=== PATIENT | male | born 1985 | race Caucasian/White ===

== ENCOUNTER 2021-05-07 16:23 | Inpatient (IN) | payer MEDICARE, MEDICAID ==
[~2021-05-07] VITALS: Ht 152.4 cm; Wt 66.5 kg
[~2021-05-07 16:23] MED LIST: CLON-853 PO; FAMO-12 PO; GABA300C10 PO; INSLISPI SC; LORA2TAB12 PO; METO-159 PO; OXY5T PO; QUET25TA37 PO; ZOLP10TA PO
[2021-05-07] MEDS ORDERED: ACETAMINOPHEN 650 MG RECT SUPP PR ONE ×2 (17:43→17:45)
[2021-05-07 18:08] LABS: Hemoglobin 7.5 g/dL (13.5-17.5); Red Blood Cells 2.68 10^6/uL (4.5-5.90); White Blood Cell 13.6 10^3/uL (4.4-10.8)
[2021-05-07 18:10] LABS: Hematocrit 23.4 % (41.0-53.0); Mean Corpuscular Hgb Conc. 32.1 g/dL (32.0-36.0); Mean Corpuscular Volume 87.2 fL (80.0-100.0); Red Cell Distribution Width 17.6 % (11.8-14.3)
[2021-05-07 18:12] LABS: Basophils % (manual) 0 (0.0-2.0); Blast Cells 0; Eosinophils % (manual) 0 (0-7); Metamyelocytes % 0; Myelocytes % 0; Promyelocytes % 0; Reactive Lymphocytes 0
[2021-05-07 18:22] LABS: Alanine Aminotransferase 17 U/L (16-61); Albumin 2.7 g/dL (3.4-5.0); Anion Gap 23 (5-15); Aspartate Aminotransferase 20 U/L (15-37); BUN/Creatinine Ratio 6.7; Calcium 7.3 mg/dL (8.5-10.1); Carbon Dioxide 13 mmol/L (21-32); Chloride 91 mmol/L (98-107); GFR African American 6 mL/min; GFR Non-African American 5 mL/min; Glucose 97 mg/dL (74-106); Sodium 127 mmol/L (136-145)
[2021-05-07 18:27] LABS: Alkaline Phosphatase 121 U/L (45-117); Bilirubin, Total 0.6 mg/dL (0.2-1.0); Total Protein 6.9 g/dL (6.4-8.2)
[2021-05-07 18:31] LABS: Blood Urea Nitrogen 88 mg/dL (7-18); Potassium 6.4 mmol/L (3.5-5.1)
[2021-05-07] MEDS ORDERED: SODIUM BICARBONATE 8.4 % INJ 50ML VIAL IV ONE (18:45)
[2021-05-07] MEDS ORDERED: CALCIUM GLUC 1,000mg/50ml-NS 50 ML IV ONE (18:45)
[2021-05-07] MEDS ORDERED: SODIUM BICARBONATE 8.4% INJ 50ML SYRINGE ONE (18:52)
[2021-05-07] MEDS ORDERED: DEXTROSE (50%) 50ML SYRG IV ONE ×2 (19:00→21:00)
[2021-05-07] MEDS ORDERED: InsuLIN REG 1unit/0.01ml Soln (100units/ml) SC ONE ×2 (19:00→22:00)
[2021-05-07 20:20] LABS: Band Neutrophils % (manual) 10; Lymphocytes % (manual) 2 (10.0-50.0); Monocytes % (manual) 4 (0-12)
[2021-05-07] MEDS ORDERED: HEPARIN SODIUM (PORCINE) 5000 UNITS/ML 1ML VIAL IV ONE (20:45)
[2021-05-07] MEDS ORDERED: NITROGLYCERIN 0.4 MG SL TAB SL PRN (20:45)
[2021-05-07] MEDS ORDERED: ONDANSETRON HCL 4 MG/2 ML VIAL IV PRN (20:45)
[2021-05-07] MEDS ORDERED: MORPHINE SULFATE INJECTION 2 MG/ML SYRG IV PRN (20:45)
[2021-05-07] MEDS ORDERED: DOCUSATE SOD 100 MG CAP PO PRN (20:45)
[2021-05-07] MEDS ORDERED: VANCOMYCIN PER PHARMACY 0 MG IV SCH (21:00)
[2021-05-07] MEDS ORDERED: GENTAMICIN SULFATE 80 MG in D5W 5% 100 ML IV ONE (21:15)
[2021-05-07] MEDS ORDERED: VANCOMYCIN 1GM/250ML 250 ML IV ONE (21:30)
[2021-05-07] MEDS ORDERED: ACCU-CHEK COMFORT CURVE STRIP VI ONE (22:00)
[2021-05-07] MEDS: NOREPINEPHRINE 8 MG/250ML KIT 250 ML IV SCH (22:15)
[2021-05-07] MEDS: HEPARIN SODIUM (PORCINE) 5000 UNITS/ML 1ML VIAL SC SCH (23:10)
[2021-05-08 00:36] LABS: Calcium 7.6 mg/dL (8.5-10.1); Potassium 3.9 mmol/L (3.5-5.1)
[2021-05-08] MEDS: PIPERACILLIN-TAZOB 2.25GM 50 ML IV SCH ×4 (01:09→23:01)
[2021-05-08 06:53] LABS: Red Blood Cells 2.72 10^6/uL (4.5-5.90); Red Cell Distribution Width 17.2 % (11.8-14.3); White Blood Cell 10.7 10^3/uL (4.4-10.8)
[2021-05-08 06:55] LABS: Hematocrit 23.3 % (41.0-53.0); Hemoglobin 7.9 g/dL (13.5-17.5); Mean Corpuscular Hgb Conc. 33.9 g/dL (32.0-36.0); Mean Corpuscular Volume 85.7 fL (80.0-100.0)
[2021-05-08 06:59] LABS: Basophils % (manual) 0 (0.0-2.0); Blast Cells 0; Eosinophils % (manual) 0 (0-7); Metamyelocytes % 0; Promyelocytes % 0; Reactive Lymphocytes 0
[2021-05-08 07:18] LABS: Albumin 2.3 g/dL (3.4-5.0); Calcium 7.5 mg/dL (8.5-10.1); Potassium 4.4 mmol/L (3.5-5.1)
[2021-05-08 07:21] LABS: BUN/Creatinine Ratio 6.2; Bilirubin, Total 0.7 mg/dL (0.2-1.0)
[2021-05-08 08:01] LABS: Band Neutrophils % (manual) 7; Lymphocytes % (manual) 3 (10.0-50.0); Monocytes % (manual) 12 (0-12); Myelocytes % 1
[2021-05-08] MEDS: PANTOPRAZOLE 40 MG/10 ML VIAL INJ IV SCH (09:25)
[2021-05-08] MEDS: HEPARIN SODIUM (PORCINE) 5000 UNITS/ML 1ML VIAL SC SCH ×2 (09:26→23:02)
[2021-05-08] MEDS ORDERED: ACETAMINOPHEN 650 mg PER 20.3 mL UD PO ONE (11:00)
[2021-05-08 12:33] LABS: Urine Amorphous Crystal FEW /hpf (None Seen); Urine Bacteria FEW /hpf (None Seen); Urine Blood 2+ /uL (Negative); Urine Specific Gravity 1.024 (1.001-1.035); Urine WBC 225 /hpf (0 - 3); Urine WBC Clumps PRESENT /hpf (None Seen)
[2021-05-08 12:36] LABS: Amphetamine Screen, Urine NEGATIVE (NEGATIVE); Barbiturate Scree,Urine NEGATIVE (NEGATIVE); Benzodiazephine Screen, Urine NEGATIVE (NEGATIVE); Cannabinoid Screen, Urine NEGATIVE (NEGATIVE); Cocaine Screen, Urine NEGATIVE (NEGATIVE); Opiate Scree,Urine NEGATIVE (NEGATIVE); Phencyclidine Screen, Urine NEGATIVE (NEGATIVE)
[2021-05-08 12:39] LABS: Alcohol, Urine < 3.0 mg/dL (0-10)
[2021-05-08] MEDS ORDERED: LIDOCAINE 2% (LOCAL ANESTH.) PF 5ml SDV ONE (16:59)
[2021-05-08] MEDS: NOREPINEPHRINE 8 MG/250ML KIT 250 ML IV SCH (20:30)
[2021-05-09] MEDS ORDERED: SODIUM CHL 0.9% 1000 ML BAG XX ONE (07:00)
[2021-05-09 07:04] LABS: Hematocrit 25.4 % (41.0-53.0); Hemoglobin 8.5 g/dL (13.5-17.5)
[2021-05-09] MEDS: PIPERACILLIN-TAZOB 2.25GM 50 ML IV SCH ×3 (09:20→23:51)
[2021-05-09 10:15] LABS: INR 1.13 (0.9-1.15)
[2021-05-09] MEDS: PANTOPRAZOLE 40 MG/10 ML VIAL INJ IV SCH (10:56)
[2021-05-09] MEDS: HEPARIN SODIUM (PORCINE) 5000 UNITS/ML 1ML VIAL SC SCH ×2 (10:57→23:53)
[2021-05-09] MEDS ORDERED: LORazepam 2MG/ML-1ML VIAL IV ONE (14:30)
[2021-05-09 15:31] LABS: Hemoglobin 8.1 g/dL (13.5-17.5)
[2021-05-09] MEDS ORDERED: ONDA-144 PO (15:32)
[2021-05-09] MEDS ORDERED: ALBUAER3 INH (15:32)
[2021-05-09 15:33] LABS: Hematocrit 24.7 % (41.0-53.0); Mean Corpuscular Hemoglobin 28.2 pg (28.0-32.0); Mean Corpuscular Hgb Conc. 32.7 g/dL (32.0-36.0); Mean Corpuscular Volume 86.2 fL (80.0-100.0); Red Blood Cells 2.86 10^6/uL (4.5-5.90); Red Cell Distribution Width 17.3 % (11.8-14.3)
[2021-05-09 15:35] LABS: Basophils % (manual) 0 (0.0-2.0); Blast Cells 0; Eosinophils % (manual) 0 (0-7); Metamyelocytes % 0; Myelocytes % 0; Promyelocytes % 0; Reactive Lymphocytes 0
[2021-05-09 15:42] LABS: Calcium 8.1 mg/dL (8.5-10.1)
[2021-05-09 15:46] LABS: BUN/Creatinine Ratio 8.7; Bilirubin, Total 0.7 mg/dL (0.2-1.0); Total Protein 7.2 g/dL (6.4-8.2)
[2021-05-09] MEDS ORDERED: PANT40TA2 PO (15:48)
[2021-05-09] MEDS ORDERED: INSU100I49 SC (15:57)
[2021-05-09] MEDS ORDERED: INSUINJ37 SC (15:59)
[2021-05-09] MEDS ORDERED: TRAZ100T3 PO (16:02)
[2021-05-09] MEDS ORDERED: CLON0.2D TD (16:02)
[2021-05-09] MEDS ORDERED: DIVA500T12 PO (16:06)
[2021-05-09] MEDS ORDERED: METH10T PO (16:06)
[2021-05-09] MEDS ORDERED: LISI40TA11 PO (16:06)
[2021-05-09] MEDS ORDERED: VANCOMYCIN 1GM/250ML 250 ML IV ONE (17:00)
[2021-05-09 17:50] LABS: Band Neutrophils % (manual) 14; Lymphocytes % (manual) 8 (10.0-50.0); Monocytes % (manual) 6 (0-12)
[2021-05-09] MEDS ORDERED: EPOETIN ALFA-EPBX 10,000 UNIT/1ML VIAL SC ONE (21:00)
[2021-05-09] MEDS: VANCOMYCIN HCL 125MG/5ML ORAL SOL PO SCH (23:52)
[2021-05-10] MEDS: PIPERACILLIN-TAZOB 2.25GM 50 ML IV SCH ×3 (06:10→22:45)
[2021-05-10] MEDS: VANCOMYCIN HCL 125MG/5ML ORAL SOL PO SCH ×4 (06:11→22:45)
[2021-05-10 07:34] LABS: Basophils # (auto) 0 10 ^3/uL (0-0.2); Eosinophils # (auto) 0 10 ^3/uL (0-0.8); Eosinophils % (auto) 0.2 % (0.0-7.0); Hematocrit 25.9 % (41.0-53.0); Mean Corpuscular Volume 91.3 fL (80.0-100.0); Red Blood Cells 2.84 10^6/uL (4.5-5.90)
[2021-05-10 07:38] LABS: Basophils % (auto) 0.1 % (0.0-2.0); Hemoglobin 8.3 g/dL (13.5-17.5); Lymphocytes % (auto) 4.9 % (10.0-50.0); Mean Corpuscular Hemoglobin 29.2 pg (28.0-32.0); Monocytes # (auto) 1.8 10 ^3/uL (0-1.3); Monocytes % (auto) 9.4 % (0.0-12.0); Neutrophils # (auto) 16.6 10 ^3/uL (1.6-8.6); Neutrophils % (auto) 85.4 % (37.0-80.0); Red Cell Distribution Width 18.5 % (11.8-14.3); White Blood Cell 19.4 10^3/uL (4.4-10.8)
[2021-05-10] MEDS: PANTOPRAZOLE 40 MG/10 ML VIAL INJ IV SCH (11:42)
[2021-05-10] MEDS: HEPARIN SODIUM (PORCINE) 5000 UNITS/ML 1ML VIAL SC SCH ×2 (11:43→22:00)
[2021-05-10] MEDS: ACETAMINOPHEN 325 MG TAB PO PRN ×2 (11:59→20:34)
[2021-05-10 21:10] VITALS: BP 136/63
[2021-05-10 22:00] VITALS: BP 136/63
[2021-05-11 05:00] VITALS: BP 142/84
[2021-05-11 05:25] LABS: Mean Corpuscular Hgb Conc. 29.4 g/dL (32.0-36.0)
[2021-05-11 05:26] LABS: Hematocrit 29.3 % (41.0-53.0); Hemoglobin 8.6 g/dL (13.5-17.5); Mean Corpuscular Hemoglobin 28.3 pg (28.0-32.0); Mean Corpuscular Volume 96.5 fL (80.0-100.0); Red Blood Cells 3.04 10^6/uL (4.5-5.90); Red Cell Distribution Width 18.4 % (11.8-14.3); White Blood Cell 23.7 10^3/uL (4.4-10.8)
[2021-05-11 05:38] LABS: Basophils % (manual) 0 (0.0-2.0); Blast Cells 0; Eosinophils % (manual) 0 (0-7); Metamyelocytes % 0; Myelocytes % 0; Promyelocytes % 0; Reactive Lymphocytes 0
[2021-05-11 05:43] LABS: INR 1.16 (0.9-1.15); Partial Thromboplastin Time 32.2 sec (23.6-33.0)
[2021-05-11 06:02] LABS: Potassium 4.8 mmol/L (3.5-5.1)
[2021-05-11 06:13] LABS: BUN/Creatinine Ratio 11.4; Calcium 8.7 mg/dL (8.5-10.1)
[2021-05-11] MEDS: PIPERACILLIN-TAZOB 2.25GM 50 ML IV SCH ×3 (06:15→21:56)
[2021-05-11] MEDS: VANCOMYCIN HCL 125MG/5ML ORAL SOL PO SCH ×4 (06:16→21:56)
[2021-05-11 06:37] LABS: Band Neutrophils % (manual) 25; Lymphocytes % (manual) 5 (10.0-50.0); Monocytes % (manual) 8 (0-12)
[2021-05-11] MEDS ORDERED: SODIUM CHL 0.9% 1000 ML BAG XX ONE (07:00)
[2021-05-11] MEDS ORDERED: DEXTROSE (50%) 50ML SYRG IV PRN ×3 (08:45→19:00)
[2021-05-11] MEDS ORDERED: InsuLIN R (HUMAN) 100 UNITS in SODIUM CHL 0.9% 99 ML IV SCH ×3 (08:45→12:45)
[2021-05-11] MEDS ORDERED: INSULIN LANTUS (GLARGINE) 1 /0.01ml (100units/ml) SC ONE ×3 (08:45→22:00)
[2021-05-11 08:54] VITALS: BP 122/73
[2021-05-11] MEDS ORDERED: ACCU-CHEK COMFORT CURVE STRIP VI SCH (09:00)
[2021-05-11] MEDS: SODIUM CHLORIDE 0.9% 1,000 ML IV SCH ×2 (09:31→10:45)
[2021-05-11 10:25] LABS: Basophils % (auto) 0.2 % (0.0-2.0); Eosinophils # (auto) 0 10 ^3/uL (0-0.8); Eosinophils % (auto) 0.1 % (0.0-7.0); Hemoglobin 8.1 g/dL (13.5-17.5); Lymphocytes # (auto) 0.9 10 ^3/uL (0.4-5.4); White Blood Cell 22.8 10^3/uL (4.4-10.8)
[2021-05-11 10:28] LABS: Basophils # (auto) 0 10 ^3/uL (0-0.2); Hematocrit 27.3 % (41.0-53.0); Lymphocytes % (auto) 3.9 % (10.0-50.0); Mean Corpuscular Hemoglobin 28.3 pg (28.0-32.0); Mean Corpuscular Hgb Conc. 29.6 g/dL (32.0-36.0); Mean Corpuscular Volume 95.5 fL (80.0-100.0); Monocytes # (auto) 1.5 10 ^3/uL (0-1.3); Monocytes % (auto) 6.6 % (0.0-12.0); Neutrophils # (auto) 20.3 10 ^3/uL (1.6-8.6); Neutrophils % (auto) 89.2 % (37.0-80.0); Red Blood Cells 2.86 10^6/uL (4.5-5.90); Red Cell Distribution Width 18.6 % (11.8-14.3)
[2021-05-11] MEDS: HEPARIN SODIUM (PORCINE) 5000 UNITS/ML 1ML VIAL SC SCH (10:34)
[2021-05-11] MEDS: PANTOPRAZOLE 40 MG/10 ML VIAL INJ IV SCH (10:34)
[2021-05-11 10:44] LABS: Calcium 8.3 mg/dL (8.5-10.1); Potassium 5.1 mmol/L (3.5-5.1)
[2021-05-11 10:49] LABS: Magnesium 3.3 mg/dL (1.6-2.6)
[2021-05-11 10:53] LABS: BUN/Creatinine Ratio 11.5
[2021-05-11 11:19] LABS: Phosphorus 9.5 mg/dL (2.5-4.90)
[2021-05-11 12:00] VITALS: BP 146/102
[2021-05-11] MEDS: ACCU-CHEK COMFORT CURVE STRIP VI SCH ×6 (12:34→21:55)
[2021-05-11] MEDS ORDERED: SODIUM CHLORIDE 0.9% 1,000 ML IV SCH ×2 (12:45→14:45)
[2021-05-11 15:47] LABS: Urine Bacteria MANY /hpf (None Seen); Urine Blood 3+ /uL (Negative); Urine WBC 2072 /hpf (0 - 3)
[2021-05-11 15:50] LABS: Urine Specific Gravity 1.028 (1.001-1.035)
[2021-05-11 15:56] LABS: BUN/Creatinine Ratio 10.1; Calcium 7.8 mg/dL (8.5-10.1)
[2021-05-11 16:10] VITALS: BP 140/72
[2021-05-11 18:22] VITALS: BP 146/80
[2021-05-11 18:36] LABS: Anion Gap 12 (5-15); BUN/Creatinine Ratio 8.9; Blood Urea Nitrogen 34 mg/dL (7-18); Calcium 7.9 mg/dL (8.5-10.1); Carbon Dioxide 28 mmol/L (21-32); Chloride 101 mmol/L (98-107); GFR African American 23 mL/min; GFR Non-African American 19 mL/min; Glucose 141 mg/dL (74-106); Potassium 3.6 mmol/L (3.5-5.1); Sodium 141 mmol/L (136-145)
[2021-05-11] MEDS ORDERED: EPOETIN ALFA-EPBX 4,000 UNIT/ML VIAL SC ONE (21:00)
[2021-05-11] MEDS: LINEZOLID 600MG/300ML 300 ML IV SCH (21:56)
[2021-05-11 22:00] VITALS: BP 147/84
[2021-05-12] MEDS: HEPARIN SODIUM (PORCINE) 5000 UNITS/ML 1ML VIAL SC SCH ×3 (01:04→22:54)
[2021-05-12] MEDS: InsuLIN REG 1unit/0.01ml Soln (100units/ml) SC SCH ×5 (03:14→22:00)
[2021-05-12 05:00] VITALS: BP 149/83
[2021-05-12] MEDS: VANCOMYCIN HCL 125MG/5ML ORAL SOL PO SCH ×3 (06:32→18:12)
[2021-05-12] MEDS: ACCU-CHEK COMFORT CURVE STRIP VI SCH ×3 (06:32→17:09)
[2021-05-12] MEDS: PIPERACILLIN-TAZOB 2.25GM 50 ML IV SCH ×2 (06:32→14:29)
[2021-05-12 08:03] LABS: Eosinophils # (auto) 0.1 10 ^3/uL (0-0.8); Hemoglobin 8.1 g/dL (13.5-17.5); Lymphocytes # (auto) 1.2 10 ^3/uL (0.4-5.4); Monocytes # (auto) 1.1 10 ^3/uL (0-1.3)
[2021-05-12 08:06] LABS: Basophils # (auto) 0 10 ^3/uL (0-0.2); Basophils % (auto) 0.1 % (0.0-2.0); Eosinophils % (auto) 0.4 % (0.0-7.0); Hematocrit 24.8 % (41.0-53.0); Lymphocytes % (auto) 6.1 % (10.0-50.0); Mean Corpuscular Hemoglobin 28.5 pg (28.0-32.0); Mean Corpuscular Hgb Conc. 32.7 g/dL (32.0-36.0); Mean Corpuscular Volume 87.1 fL (80.0-100.0); Monocytes % (auto) 5.8 % (0.0-12.0); Neutrophils # (auto) 16.5 10 ^3/uL (1.6-8.6); Neutrophils % (auto) 87.6 % (37.0-80.0); Red Blood Cells 2.85 10^6/uL (4.5-5.90); Red Cell Distribution Width 16.9 % (11.8-14.3); White Blood Cell 18.8 10^3/uL (4.4-10.8)
[2021-05-12 09:00] VITALS: BP 143/82
[2021-05-12 09:29] LABS: BUN/Creatinine Ratio 8.1; Potassium 3.5 mmol/L (3.5-5.1)
[2021-05-12] MEDS ORDERED: INSULIN LANTUS (GLARGINE) 1 /0.01ml (100units/ml) SC SCH ×2 (10:00)
[2021-05-12] MEDS: PANTOPRAZOLE 40 MG/10 ML VIAL INJ IV SCH (10:04)
[2021-05-12] MEDS: LINEZOLID 600MG/300ML 300 ML IV SCH (10:04)
[2021-05-12] MEDS: INSULIN LANTUS (GLARGINE) 1 /0.01ml (100units/ml) SC SCH (10:24)
[2021-05-12 13:00] VITALS: BP 140/76
[2021-05-12] MEDS ORDERED: VANCOMYCIN 1GM/250ML 250 ML IV ONE (16:15)
[2021-05-12] MEDS ORDERED: HYDROcodone-ACET 5/325MG TAB PO PRN (16:45)
[2021-05-12] MEDS: HYDROcodone-ACET 10/325MG TAB PO PRN (16:51)
[2021-05-12 17:00] VITALS: BP 146/89
[2021-05-12 22:00] VITALS: BP 147/81
[2021-05-13] MEDS: LINEZOLID 600MG/300ML 300 ML IV SCH ×3 (00:12→22:36)
[2021-05-13] MEDS: ACCU-CHEK COMFORT CURVE STRIP VI SCH ×5 (00:12→22:37)
[2021-05-13] MEDS: VANCOMYCIN HCL 125MG/5ML ORAL SOL PO SCH ×5 (00:12→22:36)
[2021-05-13] MEDS: PIPERACILLIN-TAZOB 2.25GM 50 ML IV SCH ×4 (00:12→22:36)
[2021-05-13 05:00] VITALS: BP 145/84
[2021-05-13] MEDS: HYDROcodone-ACET 10/325MG TAB PO PRN ×2 (06:26→15:20)
[2021-05-13] MEDS: InsuLIN REG 1unit/0.01ml Soln (100units/ml) SC SCH ×4 (06:29→22:00)
[2021-05-13 07:38] LABS: Basophils # (auto) 0 10 ^3/uL (0-0.2); Basophils % (auto) 0.2 % (0.0-2.0); Eosinophils # (auto) 0 10 ^3/uL (0-0.8); Eosinophils % (auto) 0.1 % (0.0-7.0); Hemoglobin 8.4 g/dL (13.5-17.5); White Blood Cell 22.2 10^3/uL (4.4-10.8)
[2021-05-13 07:40] LABS: Hematocrit 25.7 % (41.0-53.0); Lymphocytes # (auto) 1.2 10 ^3/uL (0.4-5.4); Lymphocytes % (auto) 5.3 % (10.0-50.0); Mean Corpuscular Hemoglobin 28.3 pg (28.0-32.0); Mean Corpuscular Hgb Conc. 32.8 g/dL (32.0-36.0); Mean Corpuscular Volume 86.1 fL (80.0-100.0); Monocytes % (auto) 4.5 % (0.0-12.0); Neutrophils % (auto) 89.9 % (37.0-80.0); Red Blood Cells 2.98 10^6/uL (4.5-5.90); Red Cell Distribution Width 16.7 % (11.8-14.3)
[2021-05-13 07:43] LABS: Calcium 7.9 mg/dL (8.5-10.1); Potassium 3.4 mmol/L (3.5-5.1)
[2021-05-13 07:45] LABS: BUN/Creatinine Ratio 8.1
[2021-05-13 09:00] VITALS: BP 142/81
[2021-05-13] MEDS: PANTOPRAZOLE 40 MG/10 ML VIAL INJ IV SCH (09:23)
[2021-05-13] MEDS: HEPARIN SODIUM (PORCINE) 5000 UNITS/ML 1ML VIAL SC SCH ×2 (09:24→22:51)
[2021-05-13] MEDS: INSULIN LANTUS (GLARGINE) 1 /0.01ml (100units/ml) SC SCH (09:24)
[2021-05-13 13:00] VITALS: BP 144/85
[2021-05-13] MEDS ORDERED: HYDROmorphone HCL 2 MG TAB PO PRN (16:00)
[2021-05-13 17:00] VITALS: BP 145/82
[2021-05-13] MEDS: HYDROmorphone HCL 2 MG TAB PO PRN ×2 (17:50→22:37)
[2021-05-13] MEDS: Ensure HIGH Protein Chocolate 8oz Bottle PO SCH (20:00)
[2021-05-13 22:00] VITALS: BP 141/79
[2021-05-13] MEDS: ACETAMINOPHEN 325 MG TAB PO PRN (22:37)
[2021-05-14] MEDS: HYDROmorphone HCL 2 MG TAB PO PRN ×4 (04:34→22:12)
[2021-05-14 05:00] VITALS: BP 153/88
[2021-05-14] MEDS: VANCOMYCIN HCL 125MG/5ML ORAL SOL PO SCH ×4 (05:57→20:45)
[2021-05-14] MEDS: PIPERACILLIN-TAZOB 2.25GM 50 ML IV SCH (06:54)
[2021-05-14] MEDS: ACCU-CHEK COMFORT CURVE STRIP VI SCH ×4 (06:54→20:45)
[2021-05-14] MEDS: InsuLIN REG 1unit/0.01ml Soln (100units/ml) SC SCH ×4 (06:54→20:54)
[2021-05-14] MEDS ORDERED: SODIUM CHL 0.9% 1000 ML BAG XX ONE (07:00)
[2021-05-14 07:44] LABS: Basophils # (auto) 0 10 ^3/uL (0-0.2); Eosinophils # (auto) 0 10 ^3/uL (0-0.8); Monocytes % (auto) 4.3 % (0.0-12.0)
[2021-05-14 07:47] LABS: Basophils % (auto) 0.2 % (0.0-2.0); Eosinophils % (auto) 0.2 % (0.0-7.0); Hematocrit 23.7 % (41.0-53.0); Hemoglobin 7.8 g/dL (13.5-17.5); Lymphocytes # (auto) 1.3 10 ^3/uL (0.4-5.4); Lymphocytes % (auto) 5.4 % (10.0-50.0); Mean Corpuscular Hemoglobin 28.3 pg (28.0-32.0); Mean Corpuscular Hgb Conc. 32.7 g/dL (32.0-36.0); Mean Corpuscular Volume 86.3 fL (80.0-100.0); Neutrophils # (auto) 21.6 10 ^3/uL (1.6-8.6); Neutrophils % (auto) 89.9 % (37.0-80.0); Red Blood Cells 2.75 10^6/uL (4.5-5.90); Red Cell Distribution Width 16.4 % (11.8-14.3)
[2021-05-14 08:00] VITALS: BP 146/79
[2021-05-14] MEDS: Ensure HIGH Protein Chocolate 8oz Bottle PO SCH ×3 (08:00→18:34)
[2021-05-14 08:07] LABS: BUN/Creatinine Ratio 7.9; Potassium 3.4 mmol/L (3.5-5.1)
[2021-05-14] MEDS: HEPARIN SODIUM (PORCINE) 5000 UNITS/ML 1ML VIAL SC SCH ×2 (10:00→21:01)
[2021-05-14] MEDS: INSULIN LANTUS (GLARGINE) 1 /0.01ml (100units/ml) SC SCH (10:00)
[2021-05-14] MEDS: PANTOPRAZOLE 40 MG/10 ML VIAL INJ IV SCH (10:34)
[2021-05-14] MEDS: LINEZOLID 600MG/300ML 300 ML IV SCH (10:35)
[2021-05-14] MEDS ORDERED: LIDOCAINE 2%HCL (LOCAL ANESTH.) INJ 20ML MDV ONE ×2 (11:51→11:55)
[2021-05-14] MEDS ORDERED: fentaNYL CITRATE 100 MCG/2 ML VL ONE (11:51)
[2021-05-14] MEDS ORDERED: MIDAZOLAM HCL 2MG/2ML 2ml VIAL (1mg/ml) ONE (11:51)
[2021-05-14] MEDS ORDERED: ANGIOMAX 250 MG VIAL IV ONE (11:51)
[2021-05-14] MEDS ORDERED: HEPARIN IN NS 1000Units/500mL 1,500 ML ONE (11:52)
[2021-05-14] MEDS ORDERED: IODIXANOL 320MG/ML 100ML BTL IV ONE (11:52)
[2021-05-14] MEDS ORDERED: SODIUM CHL 0.9% 0 ML ONE (11:52)
[2021-05-14] MEDS ORDERED: diphenhdrAMINE HCL 50 MG/1 ML VL IV ONE (15:45)
[2021-05-14 16:00] VITALS: BP 163/93
[2021-05-14] MEDS: ceFAZolin 1GM/50ML 50 ML IV SCH (18:33)
[2021-05-14] MEDS: LORazepam 2MG/ML-1ML VIAL IV PRN (20:46)
[2021-05-14] MEDS ORDERED: EPOETIN ALFA-EPBX 4,000 UNIT/ML VIAL SC ONE (21:00)
[2021-05-14 22:00] VITALS: BP 160/92
[2021-05-15] MEDS: LORazepam 2MG/ML-1ML VIAL IV PRN ×3 (04:56→20:13)
[2021-05-15] MEDS: HYDROmorphone HCL 2 MG TAB PO PRN ×3 (04:57→18:14)
[2021-05-15 05:00] VITALS: BP 160/95
[2021-05-15] MEDS: ACCU-CHEK COMFORT CURVE STRIP VI SCH ×3 (06:47→17:42)
[2021-05-15] MEDS: VANCOMYCIN HCL 125MG/5ML ORAL SOL PO SCH ×3 (06:47→17:43)
[2021-05-15] MEDS: InsuLIN REG 1unit/0.01ml Soln (100units/ml) SC SCH ×4 (06:48→22:00)
[2021-05-15 08:24] VITALS: BP 144/69
[2021-05-15] MEDS: Ensure HIGH Protein Chocolate 8oz Bottle PO SCH ×3 (10:28→17:43)
[2021-05-15] MEDS: PANTOPRAZOLE 40 MG/10 ML VIAL INJ IV SCH (10:28)
[2021-05-15] MEDS: INSULIN LANTUS (GLARGINE) 1 /0.01ml (100units/ml) SC SCH (10:56)
[2021-05-15] MEDS: HEPARIN SODIUM (PORCINE) 5000 UNITS/ML 1ML VIAL SC SCH (10:56)
[2021-05-15 12:36] VITALS: BP 147/88
[2021-05-15] MEDS: ACETAMINOPHEN 325 MG TAB PO PRN (15:48)
[2021-05-15 16:25] VITALS: BP 139/74
[2021-05-15] MEDS: ceFAZolin 1GM/50ML 50 ML IV SCH (17:43)
[2021-05-15 22:00] VITALS: BP 147/77
[2021-05-16] MEDS: HYDROmorphone HCL 2 MG TAB PO PRN (00:39)
[2021-05-16] MEDS: ACCU-CHEK COMFORT CURVE STRIP VI SCH ×5 (00:39→21:37)
[2021-05-16] MEDS: VANCOMYCIN HCL 125MG/5ML ORAL SOL PO SCH ×6 (00:39→22:28)
[2021-05-16] MEDS: ACETAMINOPHEN 325 MG TAB PO PRN ×2 (00:40→16:12)
[2021-05-16] MEDS: HEPARIN SODIUM (PORCINE) 5000 UNITS/ML 1ML VIAL SC SCH ×3 (00:40→21:37)
[2021-05-16] MEDS: LORazepam 2MG/ML-1ML VIAL IV PRN ×4 (02:13→22:29)
[2021-05-16 05:00] VITALS: BP 152/79
[2021-05-16] MEDS: InsuLIN REG 1unit/0.01ml Soln (100units/ml) SC SCH ×4 (06:14→21:37)
[2021-05-16] MEDS ORDERED: LIDOCAINE 1% HCL (LOCAL ANESTH.) INJ 20ML MDV ONE (06:52)
[2021-05-16] MEDS ORDERED: SUCCINYLCHOLINE CHLORIDE 20 MG/ML 10ML VIAL IV ONE (06:52)
[2021-05-16] MEDS ORDERED: SODIUM CHL 0.9% 1000 ML BAG XX ONE (07:00)
[2021-05-16] MEDS ORDERED: MIDAZOLAM HCL 2MG/2ML 2ml VIAL (1mg/ml) ONE (07:06)
[2021-05-16] MEDS ORDERED: fentaNYL CITRATE 100 MCG/2 ML VL ONE (07:06)
[2021-05-16] MEDS ORDERED: PROPOFOL 10 MG/ML 20 ML IV ONE (07:07)
[2021-05-16] MEDS ORDERED: SODIUM CHLORIDE LOCK 10 ML ONE (07:07)
[2021-05-16] MEDS ORDERED: KETAMINE HCL 10 ML ONE (07:07)
[2021-05-16] MEDS ORDERED: LIDOCAINE 2% (LOCAL ANESTH.) PF 5ml SDV ONE (07:07)
[2021-05-16] MEDS ORDERED: ONDANSETRON HCL 4 MG/2 ML VIAL ONE (07:07)
[2021-05-16] MEDS ORDERED: ceFAZolin 1GM VL ONE ×2 (07:11→08:16)
[2021-05-16] MEDS ORDERED: BUPIVACAINE 0.5% P/F INJ 10 ML VIAL ONE (07:30)
[2021-05-16] MEDS: Ensure HIGH Protein Chocolate 8oz Bottle PO SCH ×3 (08:00→17:38)
[2021-05-16] MEDS ORDERED: HYDROmorphone HCL 2 MG/ML VL IV PRN (08:30)
[2021-05-16] MEDS ORDERED: MORPHINE SULFATE INJECTION 2 MG/ML SYRG IV PRN (08:30)
[2021-05-16] MEDS ORDERED: ACCU-CHEK COMFORT CURVE STRIP VI ONE (08:30)
[2021-05-16] MEDS ORDERED: METOCLOPRAMIDE HCL 5MG/ml INJ 2ml VIAL IV PRN (08:30)
[2021-05-16] MEDS: INSULIN LANTUS (GLARGINE) 1 /0.01ml (100units/ml) SC SCH (09:45)
[2021-05-16] MEDS: PANTOPRAZOLE 40 MG/10 ML VIAL INJ IV SCH (09:45)
[2021-05-16 09:46] LABS: Hematocrit 26.8 % (41.0-53.0); Hemoglobin 8.5 g/dL (13.5-17.5); Mean Corpuscular Hemoglobin 27.6 pg (28.0-32.0); Mean Corpuscular Hgb Conc. 31.8 g/dL (32.0-36.0); Mean Corpuscular Volume 86.9 fL (80.0-100.0); Red Blood Cells 3.08 10^6/uL (4.5-5.90); Red Cell Distribution Width 16.7 % (11.8-14.3)
[2021-05-16 09:53] VITALS: BP 133/80
[2021-05-16 09:56] LABS: Basophils % (manual) 0 (0.0-2.0); Blast Cells 0; Eosinophils % (manual) 0 (0-7); Metamyelocytes % 0; Myelocytes % 0; Promyelocytes % 0; Reactive Lymphocytes 0
[2021-05-16 10:36] LABS: Albumin 1.5 g/dL (3.4-5.0); Calcium 7.6 mg/dL (8.5-10.1); Potassium 3.5 mmol/L (3.5-5.1)
[2021-05-16 10:40] LABS: Bilirubin, Total 0.3 mg/dL (0.2-1.0); Total Protein 7.5 g/dL (6.4-8.2)
[2021-05-16] MEDS ORDERED: diphenhdrAMINE HCL 50 MG/1 ML VL IV ONE (12:15)
[2021-05-16 13:00] VITALS: BP 148/75
[2021-05-16 14:09] LABS: Band Neutrophils % (manual) 3; Lymphocytes % (manual) 2 (10.0-50.0); Monocytes % (manual) 6 (0-12)
[2021-05-16 17:00] VITALS: BP 140/77
[2021-05-16 22:00] VITALS: BP 131/74
[2021-05-17] MEDS: HYDROmorphone HCL 2 MG TAB PO PRN (04:24)
[2021-05-17] MEDS: LORazepam 2MG/ML-1ML VIAL IV PRN ×2 (04:24→10:49)
[2021-05-17] MEDS: ACETAMINOPHEN 325 MG TAB PO PRN (04:25)
[2021-05-17 05:00] VITALS: BP 153/95
[2021-05-17] MEDS: VANCOMYCIN HCL 125MG/5ML ORAL SOL PO SCH ×2 (06:00→12:37)
[2021-05-17 06:16] LABS: Calcium 7.4 mg/dL (8.5-10.1); Potassium 3.3 mmol/L (3.5-5.1)
[2021-05-17 06:17] LABS: BUN/Creatinine Ratio 5.8
[2021-05-17 06:18] LABS: Eosinophils # (auto) 0 10 ^3/uL (0-0.8); Eosinophils % (auto) 0.1 % (0.0-7.0); Lymphocytes # (auto) 1.1 10 ^3/uL (0.4-5.4)
[2021-05-17 06:20] LABS: Basophils # (auto) 0.1 10 ^3/uL (0-0.2); Basophils % (auto) 0.3 % (0.0-2.0); Hematocrit 21.1 % (41.0-53.0); Lymphocytes % (auto) 4.4 % (10.0-50.0); Mean Corpuscular Hemoglobin 27.9 pg (28.0-32.0); Mean Corpuscular Hgb Conc. 32.3 g/dL (32.0-36.0); Mean Corpuscular Volume 86.3 fL (80.0-100.0); Monocytes # (auto) 2.1 10 ^3/uL (0-1.3); Monocytes % (auto) 8.6 % (0.0-12.0); Neutrophils # (auto) 21.2 10 ^3/uL (1.6-8.6); Neutrophils % (auto) 86.6 % (37.0-80.0); Nucleated Red Blood Cells % 0.1 %; Red Blood Cells 2.44 10^6/uL (4.5-5.90); Red Cell Distribution Width 16.2 % (11.8-14.3); White Blood Cell 24.4 10^3/uL (4.4-10.8)
[2021-05-17 06:29] LABS: Hemoglobin 6.8 g/dL (13.5-17.5)
[2021-05-17] MEDS: InsuLIN REG 1unit/0.01ml Soln (100units/ml) SC SCH ×2 (06:31→11:30)
[2021-05-17] MEDS: ACCU-CHEK COMFORT CURVE STRIP VI SCH ×2 (06:31→11:30)
[2021-05-17] MEDS: Ensure HIGH Protein Chocolate 8oz Bottle PO SCH ×2 (08:00→12:00)
[2021-05-17 09:00] VITALS: BP 151/72
[2021-05-17] MEDS ORDERED: NAFCILLIN SOD 2GM 12 GM in SODIUM CHLORIDE 0.9% 1,000 ML IV SCH (10:00)
[2021-05-17] MEDS: INSULIN LANTUS (GLARGINE) 1 /0.01ml (100units/ml) SC SCH (10:30)
[2021-05-17] MEDS: HEPARIN SODIUM (PORCINE) 5000 UNITS/ML 1ML VIAL SC SCH (10:30)
[2021-05-17] MEDS: PANTOPRAZOLE 40 MG/10 ML VIAL INJ IV SCH (10:48)
[2021-05-17 13:00] VITALS: BP 134/87
[2021-05-17 13:25] LABS: Basophils # (auto) 0.1 10 ^3/uL (0-0.2); Basophils % (auto) 0.2 % (0.0-2.0); Eosinophils # (auto) 0 10 ^3/uL (0-0.8); Eosinophils % (auto) 0.1 % (0.0-7.0); Hematocrit 21.4 % (41.0-53.0); Lymphocytes # (auto) 1.2 10 ^3/uL (0.4-5.4); Lymphocytes % (auto) 5.1 % (10.0-50.0); Mean Corpuscular Hemoglobin 27.7 pg (28.0-32.0); Mean Corpuscular Hgb Conc. 32.1 g/dL (32.0-36.0); Mean Corpuscular Volume 86.4 fL (80.0-100.0); Monocytes # (auto) 1.6 10 ^3/uL (0-1.3); Monocytes % (auto) 6.6 % (0.0-12.0); Neutrophils # (auto) 21.1 10 ^3/uL (1.6-8.6); Red Blood Cells 2.47 10^6/uL (4.5-5.90); Red Cell Distribution Width 16.3 % (11.8-14.3)
[2021-05-17 13:30] LABS: Hemoglobin 6.9 g/dL (13.5-17.5)
== END 2021-05-17 14:25 | disposition left against medical advice (07) | DRG 853 ==
LOC: ER 16:23 → EDBD 16:23 → TELE 21:37 → TELE-CENTR 05-10 21:00
PROVIDERS: ADMIT Nurse Practitioner; ATTEND Nurse Practitioner
PROC: 5A1D70Z Performance of Urinary Filtration, Intermittent, Less than 6 Hours Per Day (ICD-10-PCS; 2021-05-07)
PROC: 0JPT3WZ Removal of Totally Implantable Vascular Access Device from Trunk Subcutaneous Tissue and Fascia, Percutaneous Approach (ICD-10-PCS; 2021-05-08)
PROC: 06HY33Z Insertion of Infusion Device into Lower Vein, Percutaneous Approach (ICD-10-PCS; 2021-05-08)
PROC: 5A1D70Z Performance of Urinary Filtration, Intermittent, Less than 6 Hours Per Day (ICD-10-PCS; 2021-05-09)
PROC: 05HA33Z Insertion of Infusion Device into Left Brachial Vein, Percutaneous Approach (ICD-10-PCS; 2021-05-09)
PROC: B54NZZA Ultrasonography of Left Upper Extremity Veins, Guidance (ICD-10-PCS; 2021-05-09)
PROC: 5A1D70Z Performance of Urinary Filtration, Intermittent, Less than 6 Hours Per Day (ICD-10-PCS; 2021-05-11)
PROC: 05HA33Z Insertion of Infusion Device into Left Brachial Vein, Percutaneous Approach (ICD-10-PCS; 2021-05-11)
PROC: B54NZZA Ultrasonography of Left Upper Extremity Veins, Guidance (ICD-10-PCS; 2021-05-11)
PROC: B41GYZZ Fluoroscopy of Left Lower Extremity Arteries using Other Contrast (ICD-10-PCS; 2021-05-14)
PROC: B41FYZZ Fluoroscopy of Right Lower Extremity Arteries using Other Contrast (ICD-10-PCS; 2021-05-14)
PROC: 5A1D70Z Performance of Urinary Filtration, Intermittent, Less than 6 Hours Per Day (ICD-10-PCS; 2021-05-14)
PROC: 0Y9M0ZZ Drainage of Right Foot, Open Approach (ICD-10-PCS; 2021-05-16)
PROC: 5A1D70Z Performance of Urinary Filtration, Intermittent, Less than 6 Hours Per Day (ICD-10-PCS; 2021-05-16)
PROC: 0Y6S0Z0 Detachment at Left 2nd Toe, Complete, Open Approach (ICD-10-PCS; principal; 2021-05-16 07:47)
DX: A41.01 Sepsis due to Methicillin susceptible Staphylococcus aureus (principal); G93.41 Metabolic encephalopathy; E11.10 Type 2 diabetes mellitus with ketoacidosis without coma; J96.01 Acute respiratory failure with hypoxia; J18.9 Pneumonia, unspecified organism; N18.6 End stage renal disease; T80.211A Bloodstream infection due to central venous catheter, initial encounter; A04.72 Enterocolitis due to Clostridium difficile, not specified as recurrent; I13.2 Hypertensive heart and chronic kidney disease with heart failure and with stage 5 chronic kidney disease, or end stage renal disease; L02.611 Cutaneous abscess of right foot; E11.52 Type 2 diabetes mellitus with diabetic peripheral angiopathy with gangrene; L03.115 Cellulitis of right lower limb; M86.8X7 Other osteomyelitis, ankle and foot; J98.11 Atelectasis; I76 Septic arterial embolism; Z20.822 Contact with and (suspected) exposure to COVID-19; E87.5 Hyperkalemia; Z53.29 Procedure and treatment not carried out because of patient's decision for other reasons; F41.9 Anxiety disorder, unspecified; D63.1 Anemia in chronic kidney disease; F31.9 Bipolar disorder, unspecified; F43.12 Post-traumatic stress disorder, chronic; E11.22 Type 2 diabetes mellitus with diabetic chronic kidney disease; F20.9 Schizophrenia, unspecified; F60.3 Borderline personality disorder; I50.9 Heart failure, unspecified; E11.69 Type 2 diabetes mellitus with other specified complication; G47.00 Insomnia, unspecified; Y83.8 Other surgical procedures as the cause of abnormal reaction of the patient, or of later complication, without mention of misadventure at the time of the procedure; Z91.19 Patient's noncompliance with other medical treatment and regimen; Z99.2 Dependence on renal dialysis; Z88.6 Allergy status to analgesic agent; Z79.899 Other long term (current) drug therapy; Z68.24 Body mass index [BMI] 24.0-24.9, adult; Z86.16 Personal history of COVID-19; Z79.4 Long term (current) use of insulin; Y92.89 Other specified places as the place of occurrence of the external cause
CPT/HCPCS: 36415; 36600; 70450; 70551; 71045; 71250; 73700; 74018; 74176; 75716; 76604; 76881; 80048; 80053; 80202; 80307; 80320; 81001; 82010; 82140; 82565; 82805; 82962; 83605; 83735; 83880; 83930; 84100; 84484; 85007; 85014; 85018; 85025; 85027; 85610; 85730; 86850; 86900; 86901; 87040; 87070; 87075; 87077; 87147; 87186; 87205; 87340; 87426; 87493; 90935; 93005; 93306; 93925; 93971; 95819; 96365; 96367; 96372; 96375; 99152; C9113; G0378; J0330; J0690; J1642; J1815; J2001; J2250; J2405; J2543; J2704; J3490; J7060; Q9967

== ENCOUNTER 2021-06-06 11:47 | Inpatient (IN) | payer MEDICARE, MEDICAID ==
[~2021-06-06] VITALS: Ht 172.7 cm; Wt 65.3 kg
[~2021-06-06 11:47] MED LIST changes: +ALBUAER3 INH; -CLON-853 PO; +CLON0.2D TD; +DIVA500T12 PO; -FAMO-12 PO; -INSLISPI SC; +INSU100I49 SC; +INSUINJ37 SC; +LISI40TA11 PO; -LORA2TAB12 PO; +METH10T PO; -METO-159 PO; +ONDA-144 PO; -OXY5T PO; +PANT40TA2 PO; -QUET25TA37 PO; +TRAZ100T3 PO; -ZOLP10TA PO
[2021-06-06 12:37] LABS: Eosinophils # (auto) 0.1 10 ^3/uL (0-0.8); Hematocrit 20.9 % (41.0-53.0); Monocytes # (auto) 0.5 10 ^3/uL (0-1.3)
[2021-06-06 12:39] LABS: Basophils # (auto) 0 10 ^3/uL (0-0.2); Basophils % (auto) 0.6 % (0.0-2.0); Eosinophils % (auto) 1.9 % (0.0-7.0); Lymphocytes # (auto) 0.8 10 ^3/uL (0.4-5.4); Lymphocytes % (auto) 11.2 % (10.0-50.0); Mean Corpuscular Volume 87.8 fL (80.0-100.0); Monocytes % (auto) 7.4 % (0.0-12.0); Neutrophils # (auto) 5.8 10 ^3/uL (1.6-8.6); Neutrophils % (auto) 78.9 % (37.0-80.0); Nucleated Red Blood Cells % 0.1 %; Red Blood Cells 2.38 10^6/uL (4.5-5.90); Red Cell Distribution Width 16.7 % (11.8-14.3); White Blood Cell 7.4 10^3/uL (4.4-10.8)
[2021-06-06 12:42] LABS: Hemoglobin 6.9 g/dL (13.5-17.5)
[2021-06-06] MEDS ORDERED: ACETAMINOPHEN 500 MG TAB PO ONE (12:45)
[2021-06-06 13:00] LABS: Albumin 1.5 g/dL (3.4-5.0); Anion Gap 10 (5-15); Blood Urea Nitrogen 20 mg/dL (7-18); Calcium 6.7 mg/dL (8.5-10.1); Carbon Dioxide 26 mmol/L (21-32); Chloride 94 mmol/L (98-107); Sodium 130 mmol/L (136-145)
[2021-06-06 13:08] LABS: Alanine Aminotransferase < 6 U/L (16-61); Alkaline Phosphatase 104 U/L (45-117); Aspartate Aminotransferase 11 U/L (15-37); BUN/Creatinine Ratio 3.4; Bilirubin, Total 0.2 mg/dL (0.2-1.0); GFR African American 14 mL/min; GFR Non-African American 12 mL/min; Total Protein 7.8 g/dL (6.4-8.2)
[2021-06-06 13:21] LABS: Glucose 608 mg/dL (74-106)
[2021-06-06] MEDS ORDERED: PIPERACILLIN-TAZO 4.5GM 100 ML IV ONE (13:30)
[2021-06-06 13:33] LABS: INR 1.21 (0.9-1.15); Partial Thromboplastin Time 40.4 sec (23.6-33.0)
[2021-06-06] MEDS ORDERED: LORazepam 2MG/ML-1ML VIAL IV ONE (15:30)
[2021-06-06] MEDS ORDERED: HYDROcodone-ACET 5/325MG TAB PO ONE (15:30)
[2021-06-06] MEDS ORDERED: NITROGLYCERIN 0.4 MG SL TAB SL PRN (18:00)
[2021-06-06] MEDS ORDERED: DEXTROSE (50%) 50ML SYRG IV PRN (18:00)
[2021-06-06] MEDS ORDERED: MORPHINE SULFATE INJECTION 2 MG/ML SYRG IV PRN (18:00)
[2021-06-06] MEDS ORDERED: VANCOMYCIN PER PHARMACY 0 MG IV SCH (18:00)
[2021-06-06] MEDS: InsuLIN REG 1unit/0.01ml Soln (100units/ml) SC SCH (18:24)
[2021-06-06] MEDS: ACCU-CHEK COMFORT CURVE STRIP VI SCH (18:24)
[2021-06-06] MEDS ORDERED: VANCOMYCIN 1GM/250ML 250 ML IV ONE (19:00)
[2021-06-06] MEDS ORDERED: ONDANSETRON HCL 4 MG/2 ML VIAL IV PRN (20:45)
[2021-06-06] MEDS: hydrALAZINE HCL 10 MG TAB PO PRN (21:24)
[2021-06-06] MEDS: LORazepam 0.5 MG TAB PO PRN (21:25)
[2021-06-06] MEDS: GABAPENTIN 300 MG CAP PO SCH (23:03)
[2021-06-06] MEDS: clonazePAM 0.5 MG TAB PO SCH (23:03)
[2021-06-06] MEDS: METHADONE HCL 10 MG TAB PO PRN (23:03)
[2021-06-07 04:34] LABS: Basophils # (auto) 0.1 10 ^3/uL (0-0.2); Basophils % (auto) 0.6 % (0.0-2.0); Eosinophils # (auto) 0.4 10 ^3/uL (0-0.8); Eosinophils % (auto) 4.3 % (0.0-7.0); Hematocrit 20.9 % (41.0-53.0); Hemoglobin 7.1 g/dL (13.5-17.5); Lymphocytes # (auto) 1.4 10 ^3/uL (0.4-5.4); Lymphocytes % (auto) 14.6 % (10.0-50.0); Mean Corpuscular Hemoglobin 29.8 pg (28.0-32.0); Mean Corpuscular Hgb Conc. 33.8 g/dL (32.0-36.0); Monocytes # (auto) 0.6 10 ^3/uL (0-1.3); Monocytes % (auto) 6.5 % (0.0-12.0); Neutrophils # (auto) 7.2 10 ^3/uL (1.6-8.6); Red Blood Cells 2.37 10^6/uL (4.5-5.90); Red Cell Distribution Width 16.3 % (11.8-14.3); White Blood Cell 9.8 10^3/uL (4.4-10.8)
[2021-06-07 04:43] LABS: BUN/Creatinine Ratio 3.3; Calcium 6.5 mg/dL (8.5-10.1)
[2021-06-07] MEDS: LORazepam 0.5 MG TAB PO PRN ×3 (05:09→18:19)
[2021-06-07 05:36] LABS: Potassium 2.8 mmol/L (3.5-5.1)
[2021-06-07] MEDS: InsuLIN REG 1unit/0.01ml Soln (100units/ml) SC SCH ×4 (06:00→18:00)
[2021-06-07] MEDS: ACCU-CHEK COMFORT CURVE STRIP VI SCH ×4 (06:00→18:18)
[2021-06-07] MEDS: METHADONE HCL 10 MG TAB PO PRN ×3 (08:33→18:19)
[2021-06-07] MEDS: LISINOPRIL 20 MG TAB PO SCH (10:00)
[2021-06-07] MEDS: clonazePAM 0.5 MG TAB PO SCH ×2 (10:00→20:57)
[2021-06-07] MEDS: GABAPENTIN 300 MG CAP PO SCH ×2 (10:00→20:58)
[2021-06-07] MEDS: PANTOPRAZOLE 40 MG TAB PO SCH (10:00)
[2021-06-07] MEDS ORDERED: diphenhdrAMINE HCL 50 MG/1 ML VL IV ONE (14:00)
[2021-06-07] MEDS ORDERED: POTASSIUM CHL 20 Meq TABLET PO ONE (14:45)
[2021-06-07] MEDS: hydrALAZINE HCL 10 MG TAB PO PRN (17:19)
[2021-06-07] MEDS: PIPERACILLIN-TAZOB 2.25GM 50 ML IV SCH (17:20)
[2021-06-07] MEDS ORDERED: VANCOMYCIN 500 MG in D5W 5% 100 ML IV ONE (19:00)
[2021-06-07 22:12] VITALS: BP 162/95
[2021-06-08] MEDS: ACCU-CHEK COMFORT CURVE STRIP VI SCH ×3 (00:22→12:00)
[2021-06-08] MEDS: LORazepam 0.5 MG TAB PO PRN ×2 (00:22→11:27)
[2021-06-08] MEDS: InsuLIN REG 1unit/0.01ml Soln (100units/ml) SC SCH ×3 (00:29→12:00)
[2021-06-08] MEDS: PIPERACILLIN-TAZOB 2.25GM 50 ML IV SCH (04:12)
[2021-06-08] MEDS: METHADONE HCL 10 MG TAB PO PRN ×2 (04:22→11:29)
[2021-06-08 05:30] VITALS: BP 159/98
[2021-06-08] MEDS ORDERED: SODIUM CHL 0.9% 1000 ML BAG XX ONE (07:00)
[2021-06-08 09:00] VITALS: BP 136/82
[2021-06-08] MEDS: clonazePAM 0.5 MG TAB PO SCH (10:04)
[2021-06-08] MEDS: GABAPENTIN 300 MG CAP PO SCH (10:04)
[2021-06-08] MEDS: PANTOPRAZOLE 40 MG TAB PO SCH (10:05)
[2021-06-08] MEDS: LISINOPRIL 20 MG TAB PO SCH (10:06)
[2021-06-08 10:11] LABS: Basophils # (auto) 0.1 10 ^3/uL (0-0.2)
[2021-06-08 10:13] LABS: Eosinophils # (auto) 0.5 10 ^3/uL (0-0.8); Eosinophils % (auto) 5.4 % (0.0-7.0); Hematocrit 20.4 % (41.0-53.0); Lymphocytes # (auto) 1.7 10 ^3/uL (0.4-5.4); Lymphocytes % (auto) 19.1 % (10.0-50.0); Mean Corpuscular Hemoglobin 29.4 pg (28.0-32.0); Mean Corpuscular Hgb Conc. 33.9 g/dL (32.0-36.0); Mean Corpuscular Volume 86.6 fL (80.0-100.0); Monocytes # (auto) 0.6 10 ^3/uL (0-1.3); Monocytes % (auto) 7.4 % (0.0-12.0); Neutrophils # (auto) 5.9 10 ^3/uL (1.6-8.6); Neutrophils % (auto) 67.1 % (37.0-80.0); Red Blood Cells 2.36 10^6/uL (4.5-5.90); Red Cell Distribution Width 16.7 % (11.8-14.3); White Blood Cell 8.7 10^3/uL (4.4-10.8)
[2021-06-08 10:18] LABS: Hemoglobin 6.9 g/dL (13.5-17.5)
[2021-06-08 10:40] LABS: Potassium 4.4 mmol/L (3.5-5.1)
[2021-06-08 10:54] LABS: BUN/Creatinine Ratio 2.5; Calcium 7.7 mg/dL (8.5-10.1)
[2021-06-08] MEDS ORDERED: EPOETIN ALFA-EPBX 10,000 UNIT/1ML VIAL SC ONE (21:00)
== END 2021-06-08 12:00 | disposition left against medical advice (07) | DRG 299 ==
LOC: ER 11:47 → TELE 18:00 → TELE-CENTR 06-07 18:06
PROVIDERS: ADMIT Nurse Practitioner; ATTEND Nurse Practitioner
PROC: 5A1D70Z Performance of Urinary Filtration, Intermittent, Less than 6 Hours Per Day (ICD-10-PCS; principal; 2021-06-07)
DX: E11.52 Type 2 diabetes mellitus with diabetic peripheral angiopathy with gangrene (principal); N18.6 End stage renal disease; I96 Gangrene, not elsewhere classified; I12.0 Hypertensive chronic kidney disease with stage 5 chronic kidney disease or end stage renal disease; E87.6 Hypokalemia; D63.1 Anemia in chronic kidney disease; E11.22 Type 2 diabetes mellitus with diabetic chronic kidney disease; Z20.822 Contact with and (suspected) exposure to COVID-19; E83.39 Other disorders of phosphorus metabolism; Z53.29 Procedure and treatment not carried out because of patient's decision for other reasons; F41.9 Anxiety disorder, unspecified; Z99.2 Dependence on renal dialysis; Z88.8 Allergy status to other drugs, medicaments and biological substances; Z91.14 Patient's other noncompliance with medication regimen; Z89.421 Acquired absence of other right toe(s); Z79.4 Long term (current) use of insulin
CPT/HCPCS: 36415; 73700; 80048; 80053; 80202; 82962; 83036; 83605; 85025; 85610; 85652; 85730; 86141; 86850; 86900; 86901; 86920; 87040; 87426; 90935; 93925; 96365; G0378; J1815; J2543; J7060